=== PATIENT | female | born 1965 | race Caucasian/White ===

== ENCOUNTER 2019-01-18 14:14 | Inpatient (IN) ==
[2019-01-18 15:11] LABS: Basophils # (auto) 0.04 K/uL (0-0.2); Basophils % (auto) 0.5 %; Eosinophils % (auto) 1.2 %; Hematocrit (blood only) 39.8 % (37-47); Hemoglobin 13.6 g/dL (12.0-16.0); Immature Granulocytes # (auto) 0.02 K/uL (0.00-0.02); Immature Granulocytes % (auto) 0.2 %; Lymphocytes # (auto) 2.11 K/uL (1.2-3.4); Lymphocytes % (auto) 25.5 %; Mean Corpuscular Hgb Conc 34.2 g/dL (32-36); Mean Corpuscular Volume 93.4 fL (80-100); Mean Platelet Volume 9.9 fL (7.4-10.4); Monocytes # (auto) 0.34 K/uL (0.11-0.59); Monocytes % (auto) 4.1 %; Neutrophils # (auto) 5.66 K/uL (1.4-6.5); Neutrophils % (auto) 68.5 %; Platelet Count 313 K/uL (130-400); RDW Standard Deviation 47.6 fL (36.4-46.3); Red Blood Count 4.26 M/uL (4.2-5.4); White Blood Count 8.27 K/uL (4.8-10.8)
[2019-01-18 15:14] LABS: Oxygen Saturation VBG 91.1 %; pH VBG 7.43 (7.36-7.41)
[2019-01-18 15:28] LABS: Alanine Aminotransferase 15 U/L (12-78); Albumin Level 3.5 gm/dl (3.4-5.0); Blood Urea Nitrogen 9 mg/dl (7-18); Calcium 8.2 mg/dl (8.5-10.1); Carbon Dioxide 24 mmol/L (21-32); Chloride 114 mmol/L (98-107); Creatinine Clr Calc Pharmacy 76.1 ml/min; Est GFR (Non-African American) 79.3; Glucose 91 mg/dl (70-99); Magnesium 2.3 mg/dl (1.8-2.4); Potassium 3.2 mmol/L (3.5-5.1); Sodium 146 mmol/L (136-145)
[2019-01-18 15:33] LABS: Alkaline Phosphatase 95 U/L (45-117); Aspartate Aminotransferase 16 U/L (15-37); Bilirubin,Total 0.2 mg/dl (0.2-1); Creatine Kinase 325 U/L (26-192); Globulin 3.4 gm/dl (2.5-4.0); Total Protein 6.9 gm/dl (6.4-8.2); Troponin I < 0.015 ng/ml (0-0.045)
[2019-01-18 15:34] LABS: Appearance Urine Clear (Clear); Bilirubin Urine Negative (Negative); Blood Urine Negative (Negative); Color Urine Yellow; Glucose Urine UA Negative (Negative); Ketones Urine Negative (Negative); Leukocyte Esterase Urine Negative (Negative); Nitrite Urine Negative (Negative); Protein Urine Negative (Negative); Specific Gravity Urine 1.011 (1.000-1.030); Urobilinogen Urine Negative (Negative); pH Urine 6.5 (4.5-7.5)
--- NOTE | 2019-01-18 15:34 | XRay Report ---
XR chest 1V portable HISTORY: Overdose. COMPARISON: None. FINDINGS: No pneumothorax. No pleural effusions. The heart is normal in size. Increased interstitial markings at the lung bases may be due to the low lung volumes. Otherwise, no focal lung consolidation s to suggest pneumonia. No evidence for pulmonary edema. Old right clavicle and right rib fractures a re noted. IMPRESSION: No acute process. Electronically signed by: Jt Cabrales M.D. 01/18/2019 3:33 PM
[2019-01-18 15:36] LABS: Partial Thromboplastin Ratio 0.9; Prothrombin Time 9.9 Seconds (9.0-12.0)
[2019-01-18 15:43] LABS: Acetaminophen < 2 ug/ml (10-30); Salicylate 5.7 mg/dl (2.8-20)
[2019-01-18 15:53] LABS: Amphetamines+Metham, Urine Neg (Neg); Barbiturates, Urine Neg (Neg); Benzodiazepine, Urine Neg (Neg); Cocaine, Urine Neg (Neg); MDMA (Ecstacy), Urine Neg (Neg); Methadone, Urine Neg (Neg); Opiate, Urine Neg (Neg); Phencyclidine, Urine Neg (Neg)
[2019-01-18] MEDS ORDERED: SODIUM CHLORIDE 0.9% 1000ML 1,000 ML IV ONE (16:02)
--- NOTE | 2019-01-18 16:02 | Emergency Department Note ---
Entered by Melina Adames acting as a scribe for José Miguel Lowe DO History of Present Illness General Chief complaint: Overdose (Intentional) Source: patient and police History of Present Illness Provider complaint: Intentional overdose Onset (ago): minute(s) 45 Pain Consistency: + other (episode ) Associated symptoms: + other (Positive: overdose ) The patient is a 53 year old female with no known past medical history who presents to the ED with complaints of an episode of intentional overdose that happened an hour ago. Per police: the patient took 70 Ativan before calling the police. She had 2 rum and cokes. The patient wants to hurt herself. No history of trauma. The patient is visiting from [place]. HPI is limited secondary to the patients uncooperativeness and condition. Home Medications Home Medications Medication Instructions Recorded Confirmed Type gabapentin 600 mg PO TID 01/18/19 01/18/19 History lorazepam 1 mg PO UD 01/18/19 01/18/19 History oxycodone-acetaminophen 2 tab PO TID 01/18/19 01/18/19 History Allergies Allergy/AdvReac Type Severity Reaction Status Date / Time azithromycin Allergy Unknown Unknown Unverified 01/18/19 15:43 [From Zithromax Z-Rolando] Penicillins Allergy Unknown Unknown Unverified 01/18/19 15:43 Past Med/Surg History Medical History No known problems Family History Brother Myocardial infarction Sister Myocardial infarction Other No known problems Social History Communication Ability: Impaired Beliefs That Will Affect Care: None Current Living Situation: Significant Other Feels Safe at Home: Yes Smoking Status: Current every day smoker Tobacco Type: cigarettes ; Cigarettes Per Day: 10 ; Hx Alcohol Use: Yes Alcohol type: hard liquor Alcohol Intake Frequency Comment: over the last three days, varied hx of consumption during this time Hx Substance Use: Yes substance use type: opiates and painkillers Last Used Substance: Just Prior to Arrival Review of Systems Other (ROS is limited secondary to the patients uncooperativeness and condition. ) Physical Exam Vital Signs Vital Signs - 24 hr 01/18/19 14:14 01/18/19 14:57 01/18/19 15:01 Temperature 37.1 C Temperature Source Oral Sepsis Recent Fever Within 48 Hours No Sepsis New/Unexplained Change in Mental Status No Sepsis Action Taken by Nursing No Action Required Pulse Rate 90 87 Pulse Rate [Apical] 87 Respiratory Rate 17 18 18 Respiratory Effort / Characteristics Non-Labored Non-Labored Respiratory Depth Normal Normal Respiratory Pattern Regular Blood Pressure 124/78 Blood Pressure [Right Arm] 102/60 Blood Pressure Mean 93 Blood Pressure Mean [Right Arm] 74 Blood Pressure Position [Right Arm] Pulse Oximetry 95 97 95 Oxygen Delivery Method Room Air Room Air Room Air 01/18/19 15:02 01/18/19 15:32 01/18/19 16:00 Temperature Temperature Source Sepsis Recent Fever Within 48 Hours Sepsis New/Unexplained Change in Mental Status Sepsis Action Taken by Nursing Pulse Rate Pulse Rate [Apical] 82 75 Respiratory Rate 18 16 Respiratory Effort / Characteristics Non-Labored Respiratory Depth Normal Respiratory Pattern Blood Pressure Blood Pressure [Right Arm] 104/65 93/57 L Blood Pressure Mean Blood Pressure Mean [Right Arm] 78 69 Blood Pressure Position [Right Arm] Right Lateral Pulse Oximetry 95 96 Oxygen Delivery Method Room Air Room Air Room Air 01/18/19 16:30 01/18/19 17:00 Temperature Temperature Source Sepsis Recent Fever Within 48 Hours Sepsis New/Unexplained Change in Mental Status Sepsis Action Taken by Nursing Pulse Rate Pulse Rate [Apical] 72 69 Respiratory Rate 18 18 Respiratory Effort / Characteristics Respiratory Depth Respiratory Pattern Blood Pressure Blood Pressure [Right Arm] 98/65 L 107/72 Blood Pressure Mean Blood Pressure Mean [Right Arm] 76 83 Blood Pressure Position [Right Arm] Pulse Oximetry 98 98 Oxygen Delivery Method Room Air Room Air GENERAL: Patient is awake, alert, and in no acute distress. Patient is listless and obtunded appearing. Answers questions and responds to loud verbal stimuli. EYES: The conjunctivae are clear. The pupils are dilated and minimally reactive to light bilaterally. EOM intact. EARS, NOSE, MOUTH AND THROAT: The nose is without any evidence of any deformity. Mucous membranes are dry.Tongue is midline NECK: The neck is nontender and supple. RESPIRATORY: Normal respiratory effort is noted. There is no evidence of wheezing rhonchi or rales to auscultation. CARDIOVASCULAR: Regular rate and rhythm noted. There no murmurs rubs or gallops normal S1 normal S2 GASTROINTESTINAL: The abdomen is soft. Bowel sounds are present in all quadrants. Abdomen is nontender. MUSCULOSKELETAL/EXTREMITIES: There is no evidence of gross deformity. Full range of motion is noted in the hips and shoulders. SKIN: There is no obvious evidence of any rash. There are no petechiae, pallor or cyanosis noted. Warm and dry. No edema noted. NEUROLOGIC: Patient is awake and appears oriented to person place and situation. Follow commands. Strength is symmetric. PSYCH: Very tearful and admits to taking medications with suicidal ideation. Course 1416: The patient was evaluated in room A2. A complete history and physical exam was performed. 1545: I discussed the patient's case with Dr. Leoms, [facility] Hospitalist. The patient will be evaluated for further management. 1554: Upon reevaluation, the patient is resting comfortably. I discussed laboratory and radiographic results with her. The patient verbalized agreement of the treatment plan. The patient will be evaluated for further management and care. Consultations Consultation #1: I discussed the patient's case with Dr. Lemos, [facility] Hospitalist. The patient will be evaluated for further management. Time: 15:45 Administered Medications Gabapentin (Neurontin) 600 mg PO TID SANDI Stop: 02/17/19 20:59 Last Admin: 01/18/19 21:12 Dose: 600 mg Documented by: [id number] Nicotine (Nicoderm Cq) 14 mg TD QAM SANDI Stop: 02/17/19 17:48 Last Admin: 01/18/19 19:46 Dose: 14 mg Documented by: [id number] Oxycodone/Acetaminophen (Percocet 10/325mg) 2 tab PO TID SANDI Stop: 02/01/19 20:59 Last Admin: 01/18/19 21:12 Dose: 2 tab Documented by: [id number] Discontinued Medications Haloperidol Lactate (Haldol) Confirm Administered Dose 5 mg .ROUTE .STK-MED ONE Stop: 01/18/19 20:11 Last Admin: 01/18/19 20:14 Dose: 5 mg Documented by: [id number] Haloperidol Lactate (Haldol) 5 mg IM NOW STA Stop: 01/18/19 20:18 Last Admin: 01/18/19 21:14 Dose: Not Given Documented by: [id number] Sodium Chloride (Nss 1000ml) 1,000 mls @ 999 mls/hr IV .Q1H1M ONE Stop: 01/18/19 17:02 Last Infusion: 01/18/19 17:16 Dose: 0 mls/hr Documented by: [id number] Admin: 01/18/19 16:13 Dose: 999 mls/hr Documented by: [id number] Multivitamins 10 ml/ Thiamine HCl 100 mg/ Folic Acid 1 mg/Sodium Chloride 1,011.2 mls @ 1,011.2 mls/hr IV .Q1H SANDI Stop: 01/18/19 18:59 Last Infusion: 01/18/19 19:55 Dose: 0 mls/hr Documented by: [id number] Admin: 01/18/19 19:46 Dose: 1,011.2 mls/hr Documented by: [id number] Medical Decision Making Differential Diagnosis Differential diagnosis: Etiologies such as toxicologic, infection, hypoglycemia, electrolyte abnormalities, cardiac sources, intracerebral event, neurologic, as well as othe rs were entertained. Medical Records Attestation: I reviewed the patient's medical records. Home Medications Current Medication List: was personally reviewed by me (No known home medicatio ns ) Laboratory Data Attestation: I reviewed the patient's lab results. Result diagrams: 01/18/19 14:56 01/18/19 14:56 Lab Results 01/18/19 01/18/19 01/18/19 Range/Units 14:56 14:56 14:56 WBC 8.27 (4.8-10.8) K/uL RBC 4.26 (4.2-5.4) M/uL Hgb 13.6 (12.0-16.0) g/dL Hct 39.8 (37-47) % MCV 93.4 (80-100) fL MCH 31.9 (25-34) pg MCHC 34.2 (32-36) g/dL RDW Std Deviation 47.6 H (36.4-46.3) fL RDW Coeff of Janice 14.0 (11.5-14.5) % Plt Count 313 (130-400) K/uL MPV 9.9 (7.4-10.4) fL Immature Gran % (Auto) 0.2 % Neut % (Auto) 68.5 % Lymph % (Auto) 25.5 % [place] % (Auto) 4.1 % Eos % (Auto) 1.2 % Baso % (Auto) 0.5 % Immature Gran # (Auto) 0.02 (0.00-0.02) K/uL Neut # (Auto) 5.66 (1.4-6.5) K/uL Lymph # (Auto) 2.11 (1.2-3.4) K/uL [place] # (Auto) 0.34 (0.11-0.59) K/uL Eos # (Auto) 0.10 (0-0.5) K/uL Baso # (Auto) 0.04 (0-0.2) K/uL PT 9.9 (9.0-12.0) Seconds INR 1.0 (0.9-1.1) APTT 25.0 (21.0-31.0) Seconds PTT Ratio 0.9 VBG pH (7.36-7.41) VBG pCO2 (38-50) mmHg VBG pO2 mmHg VBG HCO3 mmol/L VBG O2 Saturation % VBG Base Excess mEq/L Barometric Pressure mm/Hg Sodium 146 H (136-145) mmol/L Potassium 3.2 L (3.5-5.1) mmol/L Chloride 114 H (98-107) mmol/L Carbon Dioxide 24 (21-32) mmol/L Anion Gap 8.0 (3-11) BUN 9 (7-18) mg/dl Creatinine 0.85 (0.6-1.2) mg/dl Est Cr Clr Drug Dosing 76.1 ml/min Est GFR ( Amer) 92.0 Est GFR (Non-Af Amer) 79.3 BUN/Creatinine Ratio 10.0 (10-20) Glucose 91 (70-99) mg/dl Calcium 8.2 L (8.5-10.1) mg/dl Magnesium 2.3 (1.8-2.4) mg/dl Total Bilirubin 0.2 (0.2-1) mg/dl AST 16 (15-37) U/L ALT 15 (12-78) U/L Alkaline Phosphatase 95 (45-117) U/L Total Creatine Kinase 325 H (26-192) U/L Troponin I < 0.015 (0-0.045) ng/ml Total Protein 6.9 (6.4-8.2) gm/dl Albumin 3.5 (3.4-5.0) gm/dl Globulin 3.4 (2.5-4.0) gm/dl Albumin/Globulin Ratio 1.0 (0.9-2) Lipase 187 (73-393) U/L Urine Color Urine Appearance (Clear) Urine pH (4.5-7.5) Ur Specific [place] (1.000-1.030) Urine Protein (Negative) Urine Glucose (UA) (Negative) Urine Ketones (Negative) Urine Blood (Negative) Urine Nitrite (Negative) Urine Bilirubin (Negative) Urine Urobilinogen (Negative) Ur Leukocyte Esterase (Negative) Salicylates (2.8-20) mg/dl Urine Opiates Screen (Neg) Ur Methadone, Qual (Neg) Acetaminophen (10-30) ug/ml Urine Barbiturates (Neg) Ur Phencyclidine (PCP) (Neg) U Amphetamin/Meth Scrn (Neg) MDMA (Ecstasy) Screen (Neg) U Benzodiazepines Scrn (Neg) Ur Cocaine Metabolite (Neg) U Marijuana (THC) Screen (Neg) Ethyl Alcohol mg/dL (0-3) mg/dl 01/18/19 01/18/19 01/18/19 Range/Units 14:56 14:56 14:56 WBC (4.8-10.8) K/uL RBC (4.2-5.4) M/uL Hgb (12.0-16.0) g/dL Hct (37-47) % MCV (80-100) fL MCH (25-34) pg MCHC (32-36) g/dL RDW Std Deviation (36.4-46.3) fL RDW Coeff of Janice (11.5-14.5) % Plt Count (130-400) K/uL MPV (7.4-10.4) fL Immature Gran % (Auto) % Neut % (Auto) % Lymph % (Auto) % [place] % (Auto) % Eos % (Auto) % Baso % (Auto) % Immature Gran # (Auto) (0.00-0.02) K/uL Neut # (Auto) (1.4-6.5) K/uL Lymph # (Auto) (1.2-3.4) K/uL [place] # (Auto) (0.11-0.59) K/uL Eos # (Auto) (0-0.5) K/uL Baso # (Auto) (0-0.2) K/uL PT (9.0-12.0) Seconds INR (0.9-1.1) APTT (21.0-31.0) Seconds PTT Ratio VBG pH 7.43 H (7.36-7.41) VBG pCO2 37 L (38-50) mmHg VBG pO2 64 mmHg VBG HCO3 24 mmol/L VBG O2 Saturation 91.1 % VBG Base Excess 0 mEq/L Barometric Pressure 731.8 mm/Hg Sodium (136-145) mmol/L Potassium (3.5-5.1) mmol/L Chloride (98-107) mmol/L Carbon Dioxide (21-32) mmol/L Anion Gap (3-11) BUN (7-18) mg/dl Creatinine (0.6-1.2) mg/dl Est Cr Clr Drug Dosing ml/min Est GFR ( Amer) Est GFR (Non-Af Amer) BUN/Creatinine Ratio (10-20) Glucose (70-99) mg/dl Calcium (8.5-10.1) mg/dl Magnesium (1.8-2.4) mg/dl Total Bilirubin (0.2-1) mg/dl AST (15-37) U/L ALT (12-78) U/L Alkaline Phosphatase (45-117) U/L Total Creatine Kinase (26-192) U/L Troponin I (0-0.045) ng/ml Total Protein (6.4-8.2) gm/dl Albumin (3.4-5.0) gm/dl Globulin (2.5-4.0) gm/dl Albumin/Globulin Ratio (0.9-2) Lipase (73-393) U/L Urine Color Urine Appearance (Clear) Urine pH (4.5-7.5) Ur Specific [place] (1.000-1.030) Urine Protein (Negative) Urine Glucose (UA) (Negative) Urine Ketones (Negative) Urine Blood (Negative) Urine Nitrite (Negative) Urine Bilirubin (Negative) Urine Urobilinogen (Negative) Ur Leukocyte Esterase (Negative) Salicylates 5.7 (2.8-20) mg/dl Urine Opiates Screen (Neg) Ur Methadone, Qual (Neg) Acetaminophen < 2 L (10-30) ug/ml Urine Barbiturates (Neg) Ur Phencyclidine (PCP) (Neg) U Amphetamin/Meth Scrn (Neg) MDMA (Ecstasy) Screen (Neg) U Benzodiazepines Scrn (Neg) Ur Cocaine Metabolite (Neg) U Marijuana (THC) Screen (Neg) Ethyl Alcohol mg/dL 241.8 H (0-3) mg/dl 01/18/19 01/18/19 Range/Units 15:20 15:20 WBC (4.8-10.8) K/uL RBC (4.2-5.4) M/uL Hgb (12.0-16.0) g/dL Hct (37-47) % MCV (80-100) fL MCH (25-34) pg MCHC (32-36) g/dL RDW Std Deviation (36.4-46.3) fL RDW Coeff of Janice (11.5-14.5) % Plt Count (130-400) K/uL MPV (7.4-10.4) fL Immature Gran % (Auto) % Neut % (Auto) % Lymph % (Auto) % [place] % (Auto) % Eos % (Auto) % Baso % (Auto) % Immature Gran # (Auto) (0.00-0.02) K/uL Neut # (Auto) (1.4-6.5) K/uL Lymph # (Auto) (1.2-3.4) K/uL [place] # (Auto) (0.11-0.59) K/uL Eos # (Auto) (0-0.5) K/uL Baso # (Auto) (0-0.2) K/uL PT (9.0-12.0) Seconds INR (0.9-1.1) APTT (21.0-31.0) Seconds PTT Ratio VBG pH (7.36-7.41) VBG pCO2 (38-50) mmHg VBG pO2 mmHg VBG HCO3 mmol/L VBG O2 Saturation % VBG Base Excess mEq/L Barometric Pressure mm/Hg Sodium (136-145) mmol/L Potassium (3.5-5.1) mmol/L Chloride (98-107) mmol/L Carbon Dioxide (21-32) mmol/L Anion Gap (3-11) BUN (7-18) mg/dl Creatinine (0.6-1.2) mg/dl Est Cr Clr Drug Dosing ml/min Est GFR ( Amer) Est GFR (Non-Af Amer) BUN/Creatinine Ratio (10-20) Glucose (70-99) mg/dl Calcium (8.5-10.1) mg/dl Magnesium (1.8-2.4) mg/dl Total Bilirubin (0.2-1) mg/dl AST (15-37) U/L ALT (12-78) U/L Alkaline Phosphatase (45-117) U/L Total Creatine Kinase (26-192) U/L Troponin I (0-0.045) ng/ml Total Protein (6.4-8.2) gm/dl Albumin (3.4-5.0) gm/dl Globulin (2.5-4.0) gm/dl Albumin/Globulin Ratio (0.9-2) Lipase (73-393) U/L Urine Color Yellow Urine Appearance Clear (Clear) Urine pH 6.5 (4.5-7.5) Ur Specific [place] 1.011 (1.000-1.030) Urine Protein Negative (Negative) Urine Glucose (UA) Negative (Negative) Urine Ketones Negative (Negative) Urine Blood Negative (Negative) Urine Nitrite Negative (Negative) Urine Bilirubin Negative (Negative) Urine Urobilinogen Negative (Negative) Ur Leukocyte Esterase Negative (Negative) Salicylates (2.8-20) mg/dl Urine Opiates Screen Neg (Neg) Ur Methadone, Qual Neg (Neg) Acetaminophen (10-30) ug/ml Urine Barbiturates Neg (Neg) Ur Phencyclidine (PCP) Neg (Neg) U Amphetamin/Meth Scrn Neg (Neg) MDMA (Ecstasy) Screen Neg (Neg) U Benzodiazepines Scrn Neg (Neg) Ur Cocaine Metabolite Neg (Neg) U Marijuana (THC) Screen Neg (Neg) Ethyl Alcohol mg/dL (0-3) mg/dl Imaging Data Radiologist's Impression: Radiology results as stated below per my review and the radiologist's interpretation: XR chest 1V portable HISTORY: Overdose. COMPARISON: None. FINDINGS: No pneumothorax. No pleural effusions. The heart is normal in size. Increased interstitial markings at the lung bases may be due to the low lung volumes. Otherwise, no focal lung consolidations to suggest pneumonia. No evidence for pulmonary edema. Old right clavicle and right rib fractures are noted. IMPRESSION: No acute process. Electronically signed by: Jt Cabrales M.D. 01/18/2019 3:33 PM ECG Data Attestation: I personally reviewed and interpreted this ECG as follows: Indication: toxicologic Rate (beats per minute): 87 Rhythm: normal sinus Findings: + RBBB; no ectopy Comparison ECG Date: no prior available Blood Pressure Blood Pressure Findings: Low blood pressure Blood Pressure Disposition: further management by hospitalist WILLIE Narrative The patient is a 53-year-old female who presented to the emergency department after an overdose. The patient had a significant amount of benzodiazepine which she took as an overdose admittedly to try and hurt her self. The patient was very anxious and tearful. She also drank significant amounts of alcohol. Patient was attempted to be medically cleared in the emergency department but given her overdose as well as the presence of the alcohol I was unable to medically clear at this time. I discussed the patient's laboratory and radiographic studies with her. She was treated with IV fluids. I discussed her case with the on-call [facility] hospitalist. They have agreed to evaluate the patient in the emergency department for further management disposition. The patient was evaluated by the mental health vocational case manager. She was also a one-to- one while she was in the department. Impression & Plan Benzodiazepine overdose, Depression, Suicidal ideation, Alcohol intoxication Discharge Plan Visit Data *Final* Discharge Date/Time: 01/18/19 17:27 Chief Complaint: Overdose (Intentional) ED Provider: José Miguel Lowe Discharge Problem: Benzodiazepine overdose, Depression, Suicidal ideation, Alcohol intoxication Patient Disposition: Admitted As Inpatient Discharge Instructions Interventions: ED Discharge Assessment Last Done: 01/18/19 17:27 Discharge Problem: Benzodiazepine overdose Qualifiers: Encounter type: initial encounter Injury intent: intentional self-harm Qualified Code(s): T42.4X2A - Poisoning by benzodiazepines, intentional self- harm, initial encounter Depression Qualifiers: Depression Type: unspecified Qualified Code(s): F32.9 - Major depressive disorder, single episode, unspecified Alcohol intoxication Qualifiers: Complication of substance-induced condition: with unspecified complication Qualified Code(s): F10.929 - Alcohol use, unspecified with intoxication, unspecified The scribe's documentation has been prepared under my direction and personally reviewed by me in its entirety. I confirm that the note above accurately refle cts all work, treatment, procedures, and medical decision making performed by me.
--- NOTE | 2019-01-18 17:12 | History & Physical Report ---
Date of Service January 18, 2019 Assessment & Plan (1) Chest pain: I think this is likely more epigastric given pt location indications Trop neg x1, serials pending EKG with RBBB, pt states this is known Monitor (2) Hypokalemia: Denies v/d Possibly related to alcohol use Will not replace via IV as I do not think pt will tolerate this, nor will she be unable to take PO Given K is just barely low at 3.2, this can be repeated tomorrow s/p IVF and ad dressed once pt is improved (3) Abdominal pain: Possibly early pancreatitis given hx of same and current alcohol use Lipase WNL NPO with chips Monitor on IVF (4) Suicidal ideation: Uncertain as to why Differing ingestion reported to police and myself Utox was neg for benzos and opiates, both of which pt claims to have taken either today or yesterday Monitor Psych c/s (5) Alcohol intoxication: + EtOH screen Monitor with banana bag and home gabapentin use Unclear when last use was, states yesterday but no recent heavy use prior to coming to [place] recently (6) RBBB: Reports this is known Monitor (7) HTN (hypertension): States dx but no medication BP is low normal now, monitor (8) Tobacco use disorder: Nicotine patch requested (9) DVT prophylaxis: Holding given low risk and likely pt will not tolerated SCDs or injections in current state High risk for leaving AMA History of Present Illness Primary Care Provider: NO PCP 53 y/o F who was brought to the hospital for stated intentional overdose. It was reported to the ED that pt called police to inform them that she had tried to kill herself just over an hour prior to presentation by taking 70 ativan. She reported 3 rum and cokes to them as well. Upon questioning, pt does give a different hx but states "I'm drunk. I don't remember." She tells me that she took 3 x10mg percocet and 30 ativan yesterday around 4p. She does state that she was trying to kill herself. She does not tell me why. She states that she has been drinking over the last three days and reports that she had 4 "twisted teas", last use was yesterday also. Pt initially did not know where she was regarding the hospital or [place]. When reminded, she states that she came here from [place] 3 days ago to see her boyfriend who lives in the area. He was apparently in the ED with her but per nursing, he stepped out to take a call and I did not see him during our discussion. When I asked pt if she feels safe with him, she replies "physically, yes but he can be a jackass". When asked if she has tried to hurt herself in the past she states "of course not" and becomes tearful. Pt states she has been having chest pain for the last 3 days. It is "right here" indicating her epigastric region. It does not radiate. She does not usually have chest pain. She also states that she has been having abd pain in the same area for the last 3 days. She states that she has hx of pancreatitis, the last episode was 4 yrs ago. She states this feels similar. She states that she does not usually drink now, but has been for 3 days as noted above. Pt de nies fever, SOB, n/v/c/d, LE pain or swelling. Pt states she takes ativan and gabapentin for pain. When asked what sort of pain, she states back pain. She tells me she has HTN, but that she does not take medication for this. She has hx of RBBB. Denies other medical hx. Allergies Allergy/AdvReac Type Severity Reaction Status Date / Time azithromycin Allergy Unknown Unknown Unverified 01/18/19 15:43 [From Zithromax Z-Rolando] Penicillins Allergy Unknown Unknown Unverified 01/18/19 15:43 Home Medications Home Medications Medication Instructions Recorded Confirmed Type gabapentin 600 mg PO TID 01/18/19 01/18/19 History lorazepam 1 mg PO UD 01/18/19 01/18/19 History oxycodone-acetaminophen 2 tab PO TID 01/18/19 01/18/19 History Past Med/Surg History Medical History No known problems Family History Brother Myocardial infarction Sister Myocardial infarction Other No known problems Social History Feels Safe at Home: Yes Smoking Status: Current every day smoker Cigarettes Per Day: 10 ; Hx Alcohol Use: Yes Alcohol Intake Frequency Comment: over the last three days, varied hx of consumption during this time Hx Substance Use: No Review of Systems Review of Systems: Pertinent positives and negatives reviewed in HPI--all others negative Physical Exam Constitutional: WD/WN, vitals as above Eyes: normal visual hoang by confrontation and + anicteric sclerae Neck: normal visual inspection and trachea midline Respiratory: normal respiratory effort, lungs clear to auscultation Cardiovascular: Rate/Rhythm: regular rate and regular rhythm Gastrointestinal (Abdomen): Inspection/Auscultation: + abdomen distended Percussion/Palpation: + abdomen tender (diffuse, mostly epigastric) and abdomen soft Musculoskeletal: Head/Neck/Chest: normocephalic and head atraumatic negative for edema, peripheral pulses intact Skin: no rashes, warm and dry Neurologic: awake and + confused Speech / Cognition: + abnormal speech (slurred) Psychiatric: Speech: no pressured speech and no loud speech Affect: + t earful affect and + labile affect Pt was sleeping soundly when I initially entered the room and did not awake to verbal stimuli. Did wake up to gentle shaking of shoulder She was cooperative but does appear intoxicated, she was confused as to her location but did reorient and was cooperative although quite tearful and unable to answer some questions Results & Data Vital Signs (Past 12 Hours) Vital Signs Temp Pulse Pulse Resp BP BP Pulse Ox 01/18/19 17:00 69 18 107/72 98 01/18/19 16:30 72 18 98/65 L 98 01/18/19 16:00 75 16 93/57 L 96 01/18/19 15:32 82 18 104/65 95 01/18/19 15:01 87 18 95 01/18/19 14:57 87 18 102/60 97 01/18/19 14:14 37.1 C 90 17 124/78 95 Diagnostic Findings CXR: neg for acute Code Status & VTE Plan Code Status Unable to discuss given current state VTE Prophylaxis Plan VTE Prophylaxis will be ordered: Yes PG Care Time/CCT Total # of Minutes Spent Total Time Spent with Patient: Total time spent is greater than 50% in coordination of care (as documented) at patient's floor/unit and/or counseling patient: (1) Alcohol intoxication Complication of substance-induced condition: with unspecified complication Qualified Code(s): F10.929 - Alcohol use, unspecified with intoxication, unspe cified
[2019-01-18] MEDS ORDERED: ONDANSETRON INJ 2 MG/ML 2 ML VIAL IV PRN (17:49)
[2019-01-18] MEDS ORDERED: MAGNESIUM HYDROXIDE SUSP 30 ML UDC PO PRN (17:49)
[2019-01-18] MEDS ORDERED: LORazepam 1 MG TAB PO PRN (17:49)
[2019-01-18] MEDS ORDERED: ACETAMINOPHEN 325 MG TAB PO PRN (17:49)
[2019-01-18] MEDS ORDERED: MULTI-VITAMIN INFUSION 10 ML, THIAMINE HCL 100 MG, FOLIC ACID 1 MG in SODIUM CHLORIDE 0... IV SCH (18:00)
[2019-01-18] MEDS: NICOTINE 14 MG/24 HR PATCH TD SCH (19:46)
[2019-01-18] MEDS ORDERED: HALOPERIDOL LACTATE 5 MG/ML 1 ML VIAL ONE (20:10)
[2019-01-18] MEDS ORDERED: HALOPERIDOL LACTATE 5 MG/ML 1 ML VIAL IM STA (20:17)
[2019-01-18] MEDS ORDERED: OLANZapine 10 MG/2.1 ML SDV IM PRN (20:44)
[2019-01-18] MEDS: GABAPENTIN 600 MG TAB PO SCH (21:12)
[2019-01-18] MEDS: OXYCODONE/ACETAMINOPHEN 10-325 TAB PO SCH (21:12)
[2019-01-19 06:44] LABS: BUN Creatinine Ratio 15.6 (10-20); Calcium 7.6 mg/dl (8.5-10.1); Creatinine Clr Calc Pharmacy 79.9 ml/min; Est GFR (African American) 97.5; Est GFR (Non-African American) 84.1; Potassium 3.8 mmol/L (3.5-5.1)
[2019-01-19] MEDS: OXYCODONE/ACETAMINOPHEN 10-325 TAB PO SCH ×2 (08:20→14:50)
[2019-01-19] MEDS: GABAPENTIN 600 MG TAB PO SCH ×2 (08:20→14:51)
[2019-01-19] MEDS: NICOTINE 14 MG/24 HR PATCH TD SCH (08:21)
--- NOTE | 2019-01-19 13:31 | Psychiatric Consultation ---
Date of Consultation January 19, 2019 Impression / Recommendations Impression Jes is a 53-year-old female reports a history of pancreatitis which she denies was associated with alcohol use who presented status post benzodiazepine overdose in setting of alcohol intoxication. She required Haldol and olanzapine prn's overnight for agitation associated with disorientation. She denies that she was suicidal prior to intoxication but does acknowledge some increased mood instability possibly associated with her menopausal symptoms as well as psychosocial stressors. She minimizes role of alcohol otherwise and is found to be somewhat inconsistent in her self-report however she does not appear yet fully alert. She does not appear to be a good candidate for chronic benzodiazepine and opiate treatment related to her history of alcohol use disorder and certainly in the setting of her acute overdose and I advised she should pursue weaning of these medications as an outpatient with her PCP. She has never been treated with an SSRI which may help to reduce chronic anxiety and support her mood however I would not start new trial of SSRI in setting of possible pancreatitis. Again this could also be pursued as an outpatient. At time of initial assessment is difficult to fully appreciate her mental status secondary to still resolving intoxication. She is denying ongoing suicidal ideation and if SI remains resolved once she is fully cleared, we may consider foregoing the behavioral health admission. However, if she is medically cleared quickly, we will likely recommend at least a brief behavioral health admission for some continued monitoring. Diagnosis: Alcohol intoxication, resolving; benzodiazepine intoxication, resolving; rule out alcohol use disorder; unspecified anxiety disorder, provisional Plan: -Continue sitter for now -Patient will be psychiatrically reevaluated tomorrow regarding potential need for behavioral health admission or when medically cleared -We will repeat UDS to rule out false-negative results -Patient will require reinitiation of Ativan prior to discharge to avoid withdrawal however advised pursuit of alternative intervention for maintenance anxiolysis such as the SSRI trial as noted above (1) Overdose: (2) Anxiety: (3) Alcohol intoxication: Complication of substance-induced condition: with unspecified complication Qualified Code(s): F10.929 - Alcohol use, unspecified with intoxication, unspecified Risk Factors Assessment Male: No : Yes Do You Have Access To A Gun?: No Health Problems: Yes (Chronic pain) Mental Health Diagnoses: Yes Substance Use Disorders: Yes Previous Attempt: No Previous Psychiatric Hospitalization: No Hopelessness: No Smoker: Yes Protective Factors Assessment : No Responsible for Young Children: No Employed: No CPT Code 59839 Psych History Chief Complaint "I am not suicidal". History of Present Illness Per medical admission H&P: 53 y/o F who was brought to the hospital for stated intentional overdose. It was reported to the ED that pt called police to inform them that she had tried to kill herself just over an hour prior to presentation by taking 70 ativan. She reported 3 rum and cokes to them as well. Upon questioning, pt does give a different hx but states "I'm drunk. I don't remember." She tells me that she took 3 x10mg percocet and 30 ativan yesterday around 4p. She does state that she was trying to kill herself. She does not tell me why. She states that she has been drinking over the last three days and reports that she had 4 "twisted teas", last use was yesterday also. Pt initially did not know where she was regarding the hospital or [place]. When reminded, she states that she came here from [place] 3 days ago to see her boyfriend who lives in the area. He was apparently in the ED with her but per nursing, he stepped out to take a call and I did not see him during our discussion. When I asked pt if she feels safe with him, she replies "physically, yes but he can be a jackass". When asked if she has tried to hurt herself in the past she states "of course not" and becomes tearful. Pt states she has been having chest pain for the last 3 days. It is "right here" indicating her epigastric region. It does not radiate. She does not usually have chest pain. She also states that she has been having abd pain in the same area for the last 3 days. She states that she has hx of pancreatitis, the last episode was 4 yrs ago. She states this feels similar. She states that she does not usually drink now, but has been for 3 days as noted above. Pt denies fever, SOB, n/v/c/d, LE pain or swelling. Pt states she takes ativan and gabapentin for pain. When asked what sort of pain, she states back pain. She tells me she has HTN, but that she does not take medication for this. She has hx of RBBB. Denies other medical hx. On psychiatric interview this morning patient found to be oriented to self and circumstances. She was very soundly asleep and difficult to awaken, snoring loudly on initial approach. She provides a self-report that she began drinking rum and Cokes on evening of presentation and was intoxicated at the time that she took the overdose. She denies that she was feeling suicidal before time of intoxication. Her self-report regarding alcohol use is notably inconsistent. She previously denied legal consequences associated with substance abuse however she reports history of DUI 15 years ago and history of rehab as well. She tells me that she was last intoxicated approximately 1 month ago to the point that she had to have someone else drive her home. She has been treated with Ativan 1 mg twice daily for 15 years by her PCP for anxiety and panic attacks per self- report. Additionally she takes oxycodone 10/325 3 times a day for 10+ years on self-report which she reports she consistently takes 3 times a day. She admits she will occasionally take an extra half pill over course of the day if pain is severe. She describes chronic back and hip pain but denies recent medical workup for that secondary to lack of health insurance coverage. She denies feeling depressed but does acknowledge feeling more emotional and reactive and irritable in setting of perimenopausal symptoms to include hot flashes and irregular menses. She describes long-standing insomnia which is further impacted by pain. Her neurovegetative profile is otherwise diffusely negative. Again she denies that she had been suicidal prior to intoxication and denies any ongoing suicidal ideation. She denies passive wish. She denies self- injurious impulses. She denies a history of self-harm. She denies access to guns. She presently does not feel that she would be unsafe outside of the hospital setting. She was informed that she was admitted with a 302 warrant by police. She states that she would be willing to sign in to the behavioral health unit voluntarily if that was recommended. She describes long-standing anxiety and symptoms of classic panic attacks but denies that she has ever been treated with an SSRI. She failed to respond to Cymbalta and Effexor trials more recently. She denies symptoms of bipolar disorder or psychosis. She adamantly and repeatedly denies recreational drug use, abuse or diversion of prescribed medications. She acknowledges stress associated with some family discord. She denies abuse at home and reports good relationship with her boyfriend. Past Psychiatric History Do You Have Access To A Gun?: No Allergies Allergy/AdvReac Type Severity Reaction Status Date / Time azithromycin Allergy Unknown Unknown Unverified 01/18/19 15:43 [From Zithromax Z-Rolando] milk Allergy Unknown Unknown Verified 01/19/19 11:58 Penicillins Allergy Unknown Unknown Unverified 01/18/19 15:43 strawberry Allergy Unknown Unknown Verified 01/19/19 11:59 Home Medications Home Medications Medication Instructions Recorded Confirmed Type gabapentin 600 mg PO TID 01/18/19 01/18/19 History lorazepam 1 mg PO UD 01/18/19 01/18/19 History oxycodone-acetaminophen 2 tab PO TID 01/18/19 01/18/19 History Personal History Beliefs That Will Affect Care: None Patient History Medical History No known problems Arthritis Family History Brother Myocardial infarction Sister Myocardial infarction Other No known problems Social History Communication Ability: Impaired Beliefs That Will Affect Care: None Current Living Situation: Significant Other Feels Safe at Home: Yes Smoking Status: Current every day smoker Tobacco Type: cigarettes ; Cigarettes Per Day: 10 ; Hx Alcohol Use: Yes Alcohol type: hard liquor Alcohol Intake Frequency Comment: over the last three days, varied hx of consumption during this time Hx Substance Use: Yes substance use type: opiates and painkillers Last Used Substance: Just Prior to Arrival Physical Exam Psychiatric: Orientation: cooperative Apperance: + disheveled Eye Contact: + fair eye contact Motor Behavior: no abnormal motor movements; no psychomotor agitation Speech is mildly dysarthric Affect: no depressed affect, no anxious affect and no angry affect "Up and down" Thought Process: goal directed thought process Thought Content: reality based without delusions (However self-report is mildly inconsistent regarding alcohol use history) Suicidal Thoughts: denies suicidal thoughts, denies suicidal plan and denies suicidal intent However she acknowledges overdose was an attempt to go to sleep and not wake up Homicidal Thoughts: denies homicidal thoughts, denies homicidal plan and denies homicidal intent Hallucinations: no auditory hallucinations, no visual hallucinations and no tactile hallucinations Cognition: + attention not intact Estimated Intelligence: consistent with education level Insight: + fair insight Judgment acutely impaired while intoxicated. Baseline insight and judgment not yet fully appreciated Vital Signs (Past 24 Hours): Last Vital Signs Temp 36.5 C 01/19/19 07:10 Pulse 80 01/19/19 07:10 Resp 18 01/19/19 07:10 BP 129/68 01/19/19 07:10 Pulse Ox 99 01/19/19 07:10 Review of Systems Constitutional: + insomnia; no anorexia Cardiovascular: no problem reported Gastrointestinal: no abdominal pain Musculoskeletal: + joint pain and + myalgia Neurologic: as per Subjective / HPI Psychiatric: + irritability and + anxiety; no depression, no hopelessness, no anhedonia, no suicidal ideation, no homicidal ideation and no hallucinations 10 point review of systems otherwise negative except as per HPI Results & Data Medications Administered Gabapentin (Neurontin) 600 mg PO TID [facility] Stop: 02/17/19 20:59 Last Admin: 01/19/19 08:20 Dose: 600 mg Documented by: [id number] Admin: 01/18/19 21:12 Dose: 600 mg Documented by: [id number] Miscellaneous (Remove Nicoderm Patch) 1 ea N/A HS [facility] Stop: 02/17/19 20:59 Last Admin: 01/18/19 21:20 Dose: Not Given Documented by: [id number] Nicotine (Nicoderm Cq) 14 mg TD QAM [facility] Stop: 02/17/19 17:48 Last Admin: 01/19/19 08:21 Dose: 14 mg Documented by: [id number] Admin: 01/18/19 19:46 Dose: 14 mg Documented by: [id number] Olanzapine (Zyprexa) 5 mg IM HS PRN PRN Reason: Agitation Stop: 02/17/19 20:59 Last Admin: 01/18/19 21:40 Dose: 5 mg Documented by: [id number] Oxycodone/Acetaminophen (Percocet 10/325mg) 2 tab PO TID [facility] Stop: 02/01/19 20:59 Last Admin: 01/19/19 08:20 Dose: 2 tab Documented by: [id number] Admin: 01/18/19 21:12 Dose: 2 tab Documented by: [id number]
--- NOTE | 2019-01-19 14:29 | Discharge Summary ---
Date of Service January 19, 2019 Admission HPI Per Admitting Provider Per medical admission H&P: 53 y/o F who was brought to the hospital for stated intentional overdose. It was reported to the ED that pt called police to inform them that she had tried to kill herself just over an hour prior to presentation by taking 70 ativan. She reported 3 rum and cokes to them as well. Upon questioning, pt does give a different hx but states "I'm drunk. I don't remember." She tells me that she took 3 x10mg percocet and 30 ativan yesterday around 4p. She does state that she was trying to kill herself. She does not tell me why. She states that she has been drinking over the last three days and reports that she had 4 "twisted teas", last use was yesterday also. Pt initially did not know where she was regarding the hospital or [place]. When reminded, she states that she came here from [place] 3 days ago to see her boyfriend who lives in the area. He was apparently in the ED with her but per nursing, he stepped out to take a call and I did not see him during our discussion. When I asked pt if she feels safe with him, she replies "physically, yes but he can be a jackass". When asked if she has tried to hurt herself in the past she states "of course not" and becomes tearful. Pt states she has been having chest pain for the last 3 days. It is "right here" indicating her epigastric region. It does not radiate. She does not usually have chest pain. She also states that she has been having abd pain in the same area for the last 3 days. She states that she has hx of pancreatitis, the last episode was 4 yrs ago. She states this feels similar. She states that she does not usually drink now, but has been for 3 days as noted above. Pt denies fever, SOB, n/v/c/d, LE pain or swelling. Pt states she takes ativan and gabapentin for pain. When asked what sort of pain, she states back pain. She tells me she has HTN, but that she does not take medication for this. She has hx of RBBB. Denies other medical hx. On psychiatric interview this morning patient found to be oriented to self and circumstances. She was very soundly asleep and difficult to awaken, snoring loudly on initial approach. She provides a self-report that she began drinking rum and Cokes on evening of presentation and was intoxicated at the time that she took the overdose. She denies that she was feeling suicidal before time of intoxication. Her self-report regarding alcohol use is notably inconsistent. She previously denied legal consequences associated with substance abuse however she reports history of DUI 15 years ago and history of rehab as well. She tells me that she was last intoxicated approximately 1 month ago to the point that she had to have someone else drive her home. She has been treated with Ativan 1 mg twice daily for 15 years by her PCP for anxiety and panic attacks per self- report. Additionally she takes oxycodone 10/325 3 times a day for 10+ years on self-report which she reports she consistently takes 3 times a day. She admits she will occasionally take an extra half pill over course of the day if pain is severe. She describes chronic back and hip pain but denies recent medical workup for that secondary to lack of health insurance coverage. She denies feeling depressed but does acknowledge feeling more emotional and reactive and irritable in setting of perimenopausal symptoms to include hot flashes and irregular menses. She describes long-standing insomnia which is further impacted by pain. Her neurovegetative profile is otherwise diffusely negative. Again she denies that she had been suicidal prior to intoxication and denies any ongoing suicidal ideation. She denies passive wish. She denies self- injurious impulses. She denies a history of self-harm. She denies access to guns. She presently does not feel that she would be unsafe outside of the hospital setting. She was informed that she was admitted with a 302 warrant by police. She states that she would be willing to sign in to the behavioral health unit voluntarily if that was recommended. She describes long-standing anxiety and symptoms of classic panic attacks but denies that she has ever been treated with an SSRI. She failed to respond to Cymbalta and Effexor trials more recently. She denies symptoms of bipolar disorder or psychosis. She adamantly and repeatedly denies recreational drug use, abuse or diversion of prescribed medications. She acknowledges stress associated with some family discord. She denies abuse at home and reports good relationship with her boyfriend. Principal Diagnosis Pt is feeling much improved today. She did have a combative episode overnight while still intoxicated once her boyfriend left. She is quite apologetic today regarding her behavior. No further abd pain and states she is "starving". She would like to eat. No further chest pain. Pt denies fever, SOB, n/v/c/d, LE pain or swelling. Discharge Exam Constitutional WD/WN, vitals as above Eyes normal visual hoang by confrontation and + anicteric sclerae Neck normal visual inspection and trachea midline Respiratory normal respiratory effort, lungs clear to auscultation Cardiovascular Rate/Rhythm: regular rate and regular rhythm Gastrointestinal (Abdomen) Inspection/Auscultation: + abdomen distended Percussion/Palpation: + abdomen tender (diffuse, mostly epigastric) and abdomen soft Musculoskeletal Head/Neck/Chest: normocephalic and head atraumatic Skin no rashes, warm and dry Neurologic awake and + confused Speech / Cognition: + abnormal speech (slurred) Psychiatric A+Ox3, euthymic affect Speech: no pressured speech and no loud speech Affect: + tearful affect and + labile affect Discharge Data Allergies Allergy/AdvReac Type Severity Reaction Status Date / Time azithromycin Allergy Unknown Unknown Unverified 01/18/19 15:43 [From Zithromax Z-Rolando] milk Allergy Unknown Unknown Verified 01/19/19 11:58 Penicillins Allergy Unknown Unknown Unverified 01/18/19 15:43 strawberry Allergy Unknown Unknown Verified 01/19/19 11:59 Consultations 01/18/19 15:49 ED Decision to Admit Stat 01/18/19 17:49 Consult Case Management - Discharge Planning Routine Consult Psychiatry Routine Hospital Course (1) Chest pain: I think this is likely more epigastric given pt location indications Trop neg x3 and now resolved EKG with RBBB, pt states this is known (2) Hypokalemia: Denies v/d Possibly related to alcohol use (3) Abdominal pain: Possibly early pancreatitis given hx of same and current alcohol use and now resolved Lipase WNL Tolerated diet without issue (4) Suicidal ideation: Differing ingestion reported to police and myself Utox was neg for benzos and opiates, both of which pt claims to have taken either day of admission or day prior to admission depending on which account is noted Repeat utox prior to d/c Psych has met with pt and feels that she would benefit from inpt tx Pt is agreeable to this and will d/c to psych care (5) Alcohol intoxication: + EtOH screen Banana bag and home gabapentin use Unclear when last use was, states yesterday but no recent heavy use prior to coming to [place] recently (6) RBBB: Reports this is known (7) HTN (hypertension): States dx but no medication BP is low normal now, monitor (8) Tobacco use disorder: Nicotine patch requested (9) DVT prophylaxis: Held given low risk and likely pt will not tolerated SCDs or injections in current state High risk for leaving AMA Total Time Total Time Spent Total Time Spent (In Minutes): >30 Discharge Plan Discharge Items Patient Disposition: Transfer Behavioral Health Fac Reason For Visit: SUICIDE ATTEMPT Discharge Diagnosis: Suicide attempt Discharge Goals: Decrease discomfort, Improve disease control, Improve function, Increase independence and Learn about illness Activity: Resume your previous activity Non-emergency contact: Primary Care Provider Call non-emergency contact if: you have any medication questions and your symptoms worsen Follow-up/Referrals: PCP,NO [Primary Care Provider] - Diet: Regular Addtl Provider Instructions: Avoid alcohol use Follow up with psychiatric team as per psychiatry at discharge Prescriptions: New nicotine 7 mg/24 hr Patch 24 Hour 14 mg transdermal QAM Qty: 30 RF: 0 Remove Nicoderm Patch 1 ea N/A HS Qty: 30 RF: 0 Continued gabapentin 600 mg tablet 600 mg PO TID RF: 0 oxycodone-acetaminophen 10-325 mg tablet 2 tab PO TID RF: 0 lorazepam 1 mg tablet 1 mg PO UD RF: 0 Stand-Alone Forms: [facility] Discharge Orders: Discharge Order (Routine); Ordered 01/19/19 Ordered By: Rosie Lemos Admission Data Admit Date/Time: 01/18/19 17:05 Attending Provider: Rosie Lemos Admit Provider: Rosie Lemos Primary Care Provider: PCP,NO Other Providers: Rosie Lemos ; Olga Lidia Nguyen Service: Telemetry Other Interventions: Discharge Summary Assessment (RN) Last Done: 01/19/19 15:55 Pending Studies at Discharge: Yes (repeat urine tox screen) DC Date/Time DO NOT enter until pt leaves facility: 01/19/19 16:09
[2019-01-19 17:27] LABS: Amphetamines+Metham, Urine Neg (Neg); Barbiturates, Urine Neg (Neg); Benzodiazepine, Urine Neg (Neg); Cocaine, Urine Neg (Neg); MDMA (Ecstacy), Urine Neg (Neg); Methadone, Urine Neg (Neg); Opiate, Urine Pos (Neg); Phencyclidine, Urine Neg (Neg)
[2019-01-19] MEDS ORDERED: OXYCODONE/ACETAMINOPHEN 10-325 TAB ONE (18:43)
[2019-01-23 15:17] LABS: Codeine Urine NEGATIVE NG/ML (CUTOFF=50); Hydrocodone Urine NEGATIVE NG/ML (CUTOFF=50); Hydromor Urine NEGATIVE NG/ML (CUTOFF=50); Morphine Urine NEGATIVE NG/ML (CUTOFF=50); Norhydrocodone Conf Ur NEGATIVE NG/ML (CUTOFF=50); Noroxycodone Urine 7320 NG/ML (CUTOFF=50); Oxycodone Urine 4830 NG/ML (CUTOFF=50); Oxymorph Urine 3120 NG/ML (CUTOFF=50)
== END 2019-01-19 16:09 | DRG 917 ==
LOC: ED 14:14 → 2S 17:05

== ENCOUNTER 2019-01-19 14:58 | Inpatient (IN) ==
[2019-01-19] MEDS ORDERED: MAGNESIUM HYDROXIDE SUSP 30 ML UDC PO PRN (16:31)
[2019-01-19] MEDS ORDERED: SODIUM CHLORIDE 0.65% NA SOLN 45 ML (OCEAN) PRN (16:31)
[2019-01-19] MEDS ORDERED: ALUMINUM/MAGNESIUM SUSP 30 ML UDC PO PRN ×2 (16:31→18:34)
[2019-01-19] MEDS ORDERED: BISMUTH SUBSALICYLATE PER ML OMNICELL CHARGE PO PRN (16:31)
[2019-01-19] MEDS ORDERED: ACETAMINOPHEN 325 MG TAB PO PRN (16:31)
[2019-01-19] MEDS ORDERED: OXYCODONE/ACETAMINOPHEN 10-325 TAB PO ONE (19:00)
[2019-01-19] MEDS: GABAPENTIN 600 MG TAB PO SCH (21:33)
[2019-01-19] MEDS: OXYCODONE/ACETAMINOPHEN 10-325 TAB PO SCH (23:58)
[2019-01-20] MEDS ORDERED: OXYCODONE/ACETAMINOPHEN 10-325 TAB PO SCH (09:00)
[2019-01-20] MEDS: OXYCODONE/ACETAMINOPHEN 10-325 TAB PO SCH ×3 (10:02→21:08)
[2019-01-20] MEDS: LORazepam 0.5 MG TAB PO SCH ×2 (10:06→21:08)
[2019-01-20] MEDS: MULTIVITAMIN TAB PO SCH (10:07)
[2019-01-20] MEDS: GABAPENTIN 600 MG TAB PO SCH ×3 (10:08→21:08)
[2019-01-20] MEDS: NICOTINE 14 MG/24 HR PATCH TD SCH (10:09)
[2019-01-20] MEDS: ESCITALOPRAM OXALATE 10 MG TAB PO SCH (11:55)
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
[2019-01-20] MEDS: HYDROCORTISONE 1% CRM 30 GM TUBE EXT PRN (18:22)
[2019-01-21 07:22] LABS: Basophils # (auto) 0.03 K/uL (0-0.2); Basophils % (auto) 0.4 %; Eosinophils # (auto) 0.11 K/uL (0-0.5); Eosinophils % (auto) 1.6 %; Hematocrit (blood only) 36.2 % (37-47); Hemoglobin 12.4 g/dL (12.0-16.0); Immature Granulocytes # (auto) 0.01 K/uL (0.00-0.02); Immature Granulocytes % (auto) 0.1 %; Lymphocytes # (auto) 1.17 K/uL (1.2-3.4); Lymphocytes % (auto) 17.1 %; Mean Corpuscular Hgb Conc 34.3 g/dL (32-36); Mean Corpuscular Volume 94.5 fL (80-100); Mean Platelet Volume 9.9 fL (7.4-10.4); Monocytes % (auto) 4.4 %; Neutrophils # (auto) 5.23 K/uL (1.4-6.5); Neutrophils % (auto) 76.4 %; Platelet Count 218 K/uL (130-400); RDW Coefficient of Variation 13.7 % (11.5-14.5); RDW Standard Deviation 47.5 fL (36.4-46.3); Red Blood Count 3.83 M/uL (4.2-5.4); White Blood Count 6.85 K/uL (4.8-10.8)
[2019-01-21 07:55] LABS: BUN Creatinine Ratio 15.3 (10-20); Calcium 8.2 mg/dl (8.5-10.1); Creatinine Clr Calc Pharmacy 87.2 ml/min; Est GFR (African American) 100.5; Est GFR (Non-African American) 86.7; Potassium 3.9 mmol/L (3.5-5.1)
[2019-01-21 08:05] LABS: Albumin Globulin Ratio 0.9 (0.9-2); Bilirubin,Total 0.3 mg/dl (0.2-1); Globulin 3.3 gm/dl (2.5-4.0); Total Protein 6.3 gm/dl (6.4-8.2)
[2019-01-21] MEDS: ESCITALOPRAM OXALATE 10 MG TAB PO SCH (08:48)
[2019-01-21] MEDS: GABAPENTIN 600 MG TAB PO SCH (08:48)
[2019-01-21] MEDS: NICOTINE 14 MG/24 HR PATCH TD SCH (08:48)
[2019-01-21] MEDS: MULTIVITAMIN TAB PO SCH (08:48)
[2019-01-21] MEDS: LORazepam 0.5 MG TAB PO SCH (08:48)
[2019-01-21] MEDS: OXYCODONE/ACETAMINOPHEN 10-325 TAB PO SCH (08:48)
[2019-01-21] MEDS: HYDROCORTISONE 1% CRM 30 GM TUBE EXT PRN (10:15)
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
== END 2019-01-21 12:07 | disposition home or self-care (01) | DRG 918 ==
LOC: 3S 16:08